=== PATIENT | male | born 1975 | race Caucasian/White ===

== ENCOUNTER 2022-11-16 14:29 | Emergency (ER) | payer OTHER ==
[~2022-11-16] VITALS: Ht 162.6 cm; Wt 59.1 kg
[2022-11-16 14:39] VITALS: BP 134/84
[2022-11-16] MEDS ORDERED: TETanus/Pertussis (Acell)/Diphther VAC/PF (Tdap-Adult) 0.5ml syringe IMVAC ONE (14:50)
[2022-11-16] MEDS ORDERED: LIDOcaine 1% 30ml preserv. free vial IJ ONE (14:50)
[2022-11-16] MEDS ORDERED: bacitracin 15gm ointment TP ONE (14:50)
--- NOTE | 2022-11-16 15:59 | NUR ---
APPLIED OINTMENT TO FINGER, DRESSED WITH NONADHERNT DRESSING AND SPLINT.
== END 2022-11-16 16:24 | disposition home or self-care (01) ==
LOC: ER 14:30
DX: S61.214A Laceration without foreign body of right ring finger without damage to nail, initial encounter (principal); Z88.0 Allergy status to penicillin; Z88.1 Allergy status to other antibiotic agents; X58.XXXA Exposure to other specified factors, initial encounter; Y93.89 Activity, other specified; Y92.89 Other specified places as the place of occurrence of the external cause; Y99.8 Other external cause status
CPT/HCPCS: 12001; 73130; 90471; 90715; 99283; A6258